=== PATIENT | male | born 1990 | race Two or more races ===

== ENCOUNTER 2024-10-05 19:17 | Emergency (ER) | payer MEDICAID, SELFPAY ==
[2024-10-05 19:19] VITALS: BMI 29.0
[2024-10-05 20:47] VITALS: BP 131/62; PULSE 59; RESP 18; TEMP 37.2; O2SAT 98
--- NOTE | 2024-10-05 20:52 | XR_ITS ---
Examination: CT abdomen and pelvis without contrast. Coronal 3-D reconstructions. Sagittal 2-D reconstructions. Date and time of exam:October 05, 2024, 2154 hours INDICATIONS: Abdominal pain and rectal pain blood in the stool today CTDI: vol (mGy): 8.23 DLP: (mGycm): 494 Technique: Axial images of the abdomen have been obtained, 3 mm slice thickness Intravenous contrast material has not been administered. Low dose protocols were performed. One or more of the following dose reduction techniques were used; automated exposure control, adjustment of the mA and/or KV according to patient size, use of iterative reconstruction technique. Findings: Contracted gallbladder No pancreatic or adrenal mass No renal or ureteral calculi, no hydronephrosis Normal appendix No bowel obstruction No diverticulitis Normal seminal vesicles Rectal wall does not show significant thickening No prostatomegaly Contracted urinary bladder The osseous structures are intact IMPRESSION: No renal or ureteral calculi, no hydronephrosis Normal appendix No diverticulitis No nonspecific colitis or proctitis on this limited noncontrast study
[2024-10-05 21:30] LABS: Basophils # (Auto) 0.0 Thou/mm3 (0.0-0.2); Basophils % (Auto) 0 % (0-2.5); Eosinophils # (Auto) 0.1 Thou/mm3 (0.0-0.5); Eosinophils % (Auto) 2 % (0-10); Hematocrit 42.2 % (41.0-53.0); Hemoglobin 15.1 g/dL (13.5-16.0); Immature Granulocytes Auto 0.01 Thou/mm3 (0.00-0.00); Lymphocytes # (Auto) 3.0 Thou/mm3 (1.0-4.8); Lymphocytes % (Auto) 41 % (10-50); Mean Corpuscular HGB Conc 35.8 g/dl (31.0-37.0); Mean Corpuscular Hemoglobin 28.8 pg (25.0-35.0); Mean Corpuscular Volume 80 fL (80-100); Monocytes # (Auto) 0.5 Thou/mm3 (0.0-0.8); Monocytes % (Auto) 7 % (0-12); Neutrophils # (Auto) 3.7 Thou/mm3 (1.8-7.7); Neutrophils % (Auto) 50 % (37-80); Nucleated Red Blood Cell # 0.00 Thou/mm3 (0.00-0.00); Nucleated Red Blood Cell % 0 /100 WBC (0); Platelet Count 175 Thou/mm3 (140-440); RDW Standard Deviation 36.2 fL (35.1-43.9); Red Blood Count 5.25 Miln/mm3 (4.50-5.90); White Blood Count 7.4 Thou/mm3 (3.8-10.6)
[2024-10-05 21:47] LABS: Alanine Aminotransferase 25 U/L (10-49); Albumin, Serum 4.2 gm/dL (3.5-5.0); Albumin/Globulin Ratio 1.6 (1.2-2.2); Alkaline Phosphatase 51 U/L (46-116); Anion Gap 8 (7-16); Aspartate Amino Transferase 26 U/L (0-34); BUN/Creatinine Ratio 9 Ratio (12-20); Bilirubin,Total 0.6 mg/dL (0.3-1.2); Blood Urea Nitrogen 10 mg/dL (9-23); Calcium 9.1 mg/dL (8.3-10.6); Calcium (Corrected) 9.1 mg/dL (8.5-10.1); Carbon Dioxide 29.0 mMol/L (20.0-31.0); Chloride 105 mMol/L (98-107); Creatinine (Component) 1.1 mg/dL (0.6-1.3); Estimated Creatinine Clearance 116.5 mL/min (>60); Globulin 2.7 gm/dL (2.3-3.5); Glucose 83 mg/dL (74-106); Lipase 39 U/L (12-53); Osmolality,Calculated 281 (275-295); Potassium 4.0 mMol/L (3.4-5.1); Sodium 142 mMol/L (136-145); Total Protein 6.9 gm/dL (5.7-8.2); eGFR > 60 See Note
[2024-10-05 23:18] LABS: Collection Type, Urine Clean Catch
[2024-10-05 23:24] LABS: Bilirubin,Urine Negative (Negative); Blood,Urine Negative (Negative); Clarity,Urine Clear (Clear/Hazy); Color,Urine Lt-Yellow (Lt Yel-Yel); Glucose, Urine Negative (Negative); Ketones,Urine Negative (Negative); Leukocyte Esterase,Urine Negative (Negative); Nitrite,Urine Negative (Negative); PH,Urine 6.5 (5.0-7.0); Protein,Urine Negative (Neg - Trace); RBC,Urine 2 /hpf (0-3); Specific Gravity,Urine 1.025 (1.001-1.035); Squamous Epithelial Cell,Urine 4 /hpf (0-5); Urobilinogen,Urine Negative mg/dL (0.0-1.0); WBC,Urine 4 /hpf (0-5)
--- NOTE | 2024-10-06 00:46 | PC.NURSE ---
PT CALLED FROM LOBBY X1 WITH NO ANSWER
--- NOTE | 2024-10-06 01:04 | PC.NURSE ---
pt called from the lobby x@with no answer.
--- NOTE | 2024-10-06 02:09 | EDNOTE_ITS ---
ED Abdominal Pain RME/HPI General Chief Complaint: Abdominal Pain Stated complaint: abd pain blood in stool pain to rectum Time seen by provider: 10/05/24 19:20 Arrival date/time: 10/05/24 19:17 This is a case of 34-year-old male who came into the emergency room due to abdominal pain epigastric area burning in character associated with nausea vomiting for 2 days patient noted to have blood streaked on the stool thus decided to start consult here in the emergency room denies any constipation diarrhea denies fever or chills denies any urinary symptoms Limitations: no limitations Related Data Previous Rx's ?Medication ?Instructions ?Recorded dicyclomine 20 mg tablet 20 mg PO TID PRN abdominal p ain 10/06/24 #20 tabs famotidine 20 mg tablet 20 mg PO BID 30 days #60 tab s 10/06/24 hydrocortisone acetate 25 mg 25 mg DE BID #12 ea 10/06 rectal suppository (Anusol-HC) omeprazole 40 mg capsule,delayed 40 mg PO QDAY 30 days #30 caps 10/06/24 release ondansetron 4 mg disintegrating 4 mg PO Q8H PRN nausea and 10/06/24 tablet vomiting #20 tabs Allergies Allergy/AdvReac Type Severity Reaction Status Date / Time No Known Allergies Allergy Verified 10/05/24 19:22 Review of Systems Review of Systems Systems Reviewed: All systems reviewed, normal except as documented Constitutional Constitutional: Reports system reviewed and no additional complaints, except as documented and Reports as per HPI ENT Ears, Nose, Mouth, and Throat: Denies dysphagia and Denies odynophagia Cardiovascular Cardiovascular: Reports system reviewed and no additional complaints, except as documented and Reports as per HPI Respiratory Respiratory: Reports system reviewed and no additional complaints, except as documented and Reports as per HPI Gastrointestinal Gastrointestinal: Reports system reviewed and no additional complaints, except as documented, Reports as per HPI, Reports abdominal pain, Denies belching, Denies bloating, Denies change in bowel habits, Denies change in stool character, Denies coffee ground emesis, Denies constipation, Denies cramping, Denies diarrhea, Denies dyspepsia, Denies dysphagia, Denies early satiety, Denies excessive flatus, Denies fecal incontinence, Denies heartburn, Denies hematemesis, Reports hematochezia, Denies loose stools, Denies melena, Reports nausea, Denies odynophagia, Denies tenesmus and Reports vomiting Genitourinary Genitourinary: Reports system reviewed and no additional complaints, except as documented and Reports as per HPI Musculoskeletal Musculoskeletal: Reports system reviewed and no additional complaints, except as documented and Reports as per HPI Integumentary/Breasts Skin/Breast: Reports system reviewed and no additional complaints, except as documented and Reports as per HPI Neurologic Neurologic: Reports system reviewed and no additional complaints, except as documented and Reports as per HPI Past Medical History Social History SMOKING STATUS: Never smoker SUBSTANCE USE: does not use ED Exam General Limitations: Present no limitations General appearance: Present alert and in no apparent distress; Absent appears intoxicated, anxious or lethargic Head Head exam: Present atraumatic, normocephalic and normal inspection Eye Eye exam: Present normal appearance, PERRL and EOMI ENT ENT exam: Present normal exam, normal oropharynx and mucous membranes moist Neck Neck exam: Present normal inspection, full ROM and trachea midline; Absent tenderness, meningismus, lymphadenopathy or thyromegaly Chest Chest inspection: Present normal inspection and symmetric chest wall rise; Absent tenderness, rash or abscess Respiratory Respiratory exam: Present normal lung sounds bilaterally; Absent respiratory distress, wheezes, stridor, accessory muscle use or prolonged expiratory phase Cardiovascular Cardiovascular exam: Present regular rate, normal rhythm and normal heart sounds; Absent bradycardia, tachycardia, irregular rhythm, systolic murmur or diastolic murmur Abdominal Exam Abdominal exam: Present soft, distention, tenderness (Mild tenderness in the epigastric area no CVA tenderness) and normal bowel sounds; Absent guarding, rebound, rigidity, diminished bowel sounds, hyperactive bowel sounds, hypoactive bowel sounds, organomegaly, obturator sign, Guerrier's sign or tenderness at McBurney's Point Abdominal tenderness: Present epigastrium and mild Rectal Exam Rectal exam: Present normal rectal tone, heme (+) stool, hemorrhoids, normal prostate and other (Chaperoned with the nurse); Absent mass, tenderness, prostate tenderness or prostate enlargement Extremities Exam Extremities exam: Present normal inspection and full ROM Back Exam Back exam: Present normal inspection and full ROM Neurological Exam Neurological exam: Present alert, oriented X3, CN II-XII intact, normal gait and reflexes normal; Absent motor sensory deficit Psychiatric Psychiatric exam: Present normal affect and normal mood Skin Skin exam: Present warm, dry, intact and normal color Course Quality Measures none Orders Category Date Time Status Occult Blood,Stool (Nursing) NOW Care 10/05/24 20:[address] abdomen pelvis wo con Stat Exams 10/05/24 20:52 Completed CBC Stat Lab 10/05/24 21:10 Completed Comprehensive Metabolic Panel Stat Lab 10/05/24 21:10 Completed Lipase Stat Lab 10/05/24 21:10 Completed Occult Blood, Stool (LAB) Stat Lab 10/06/24 02:05 Ordered Urinalysis Stat Lab 10/05/24 23:07 Completed Vital Signs Vital signs: Vital Signs Temperature 98.9 F 10/05/24 20:47 Pulse Rate 59 L 10/05/24 20:47 Respiratory Rate 18 10/05/24 20:47 Blood Pressure 131/62 H 10/05/24 20:47 Pulse Oximetry (%) 98 10/05/24 20:47 Oxygen Delivery Method Room Air 10/05/24 20:47 Oxygen saturation 98% in room air normal Abdominal Pain MDM MDM Narrative MDM Narrative:: This is a case of 34-year-old male who came into the emergency room due to abdominal pain epigastric area burning in character associated with nausea vomiting for 2 days patient noted to have blood streaked on the stool thus decided to start consult here in the emergency room denies any constipation diarrhea denies fever or chills denies any urinary symptoms physical examination patient is awake alert oriented not in distress nontoxic look no signs and symptoms of sepsis dehydration or acute abdomen abdominal exam is benign nonsurgical no guarding no rebound no rigidity mild tenderness epigastric area negative psoas negative straight or negative Rovsing's negative McBurney's negative Guerrier sign rectal exam noted hemorrhoid at 6 o'clock position no fissure guaiac test is positive blood test showed no leukocytosis no anemia kidney and liver function is normal no electrolyte imbalance lipase normal urinalysis normal CT scan normal at this point patient condition abdominal pain suggestive of possible gastritis with hemorrhoids patient was prescribed Anusol for hemorrhoids famotidine and omeprazole for gastritis Zofran for vomiting and Bentyl for pain patient was advised to follow-up with the campus ambassador for further evaluation and treatment for possible colonoscopy and EGD for any worsening symptoms needed return to the emergency room immediately or call 911 Patient was discharged with comfortable condition walking with stable gait. Patient verbalized no further complains explained diagnosis and answered patient question. Patient is comfortable with the proposed management plan including the need to follow up with his/her primary care physician and any specialist if applicable Discussed patient for any urgent condition or worsening sx, He/She needed to go to emergency room immediately or call 911. Patient acknowledge the responsibility to follow up as instructed and to monitor her/his symptoms. For any persistence of the symptoms for more than 3-5 days return precaution advised. Discussed the result of the test and was given printed discharge instruction Patient data External records reviewed:: [facility] previous records Clinical information provided by:: patient and family Social determinants that could affect healthcare access:: none (None) Patient has the following chronic illnesses:: None How is presenting disease/condition affected by chronic disease/condition?: no chronic disease Evaluation data The following diagnostics were reviewed and interpreted by me:: lab results and radiology exam(s) Lab and/or radiology exams considered but not ordered:: Reviewed Interpretation Summary: Reviewed Medications / Prescriptions Medications or Prescriptions considered but not ordered:: Given Medication administrations:: Given Consultations Consultation(s) initiated? (list below): No Diagnosis Differential diagnosis abdominal pain: abdominal pain, acute appendicitis, calculus of kidney, constipation, diverticulitis and gastroenteritis Most likely diagnosis given after review of the tests above:: Gastritis Admission Indicated Admission indicated?: not indicated Explain why admission is indicated or not indicated:: Not indicated Admission Request Was there a request for admission?: No Admission Attestation Admission request attestation: Not indicated Disposition Plan Disposition Plan: Discharge Discharge Attestation Discharge Attestation: The patient and all family members were given an opportunity to ask questions and understood the discharge instructions. Discharge instructions specifically effects, indications for sooner follow up or return to the emergency department, and the expected course of current diagnosis. Patient condition: Stable Discharge Plan Plan Patient Disposition: HOME (Self Care) Patient condition on transfer: Stable Prescriptions/Referrals Prescriptions/Med Rec: New hydrocortisone acetate [Anusol-HC] 25 mg suppository 25 mg DE BID Qty: 12 0RF omeprazole 40 mg capsule,delayed release(DR/EC) 40 mg PO QDAY 30 Days Qty: 30 0RF famotidine 20 mg tablet 20 mg PO BID 30 Days Qty: 60 0RF ondansetron 4 mg tablet,disintegrating 4 mg PO Q8H PRN (Reason: nausea and vomiting) Qty: 20 0RF dicyclomine 20 mg tablet 20 mg PO TID PRN (Reason: abdominal pain) Qty: 20 0RF Referrals: Mamadou Ladd MD [Physician] - 10/06/24 (For follow-up for further evaluation and treatment of gastritis and blood in stool and hemorrhoids) No Primary/Family,Physician [Primary Care Provider] - In 1 week Problem List Clinical Impression: Abdominal pain, Blood in stool, Hemorrhoid, Gastritis Patient/Caregiver Discharge Instructions Education Materials: Abdominal Pain, Treating Gastritis, ED Gastritis (Adult), ED Hemorrhoids Additional Instructions: Follow-up with your primary care physician in 2 days for reevaluation and to be referred to campus ambassador for further evaluation and treatment of blood in stool and hemorrhoid worsening symptoms or any emergent concern or recurrence of symptoms return to the emergency room immediately or call 911 no ibuprofen avoid spicy food avoid fat fried high cholesterol food avoid coffee soda alcohol avoid skipping of meals keep dehydrated is advised it is very important to see the campus ambassador for further evaluation and treatment and possible EGD and colonoscopy Print Language: Turkmen Stand Alone Forms: Brenda Award Info., Patient Portal Info Letter PA/ELECTRONICS DESIGN ENGINEER Supervising Physician PA/ELECTRONICS DESIGN ENGINEER Supervising Physician: dr suazo
--- NOTE | 2024-10-06 02:50 | PC.NURSE ---
0249 RECEIVED CALL FROM CONCERNING POS OCCULT, BUT ORDER WAS CANCELED. SELAM SPRING ADDRESSED THIS ISSUE IN HER DC INSTRUCTIONS.
== END 2024-10-06 02:21 | disposition home or self-care (01) ==
PROVIDERS: Nurse Practitioner Family; Emergency Provider Emergency Medicine
DX: K29.71 Gastritis, unspecified, with bleeding (principal); K64.9 Unspecified hemorrhoids
CPT/HCPCS: 36415; 74176; 80053; 81001; 82270; 83690; 85025; 99284